=== PATIENT | male | born 1995 | race Hispanic/Latino ===

== ENCOUNTER 2017-10-05 09:58 | Emergency (ER) | payer OTHER, SELFPAY ==
[2017-10-05] MEDS ORDERED: Lidocaine 1% PF 5 ML VIAL ONE (10:10)
[2017-10-05] MEDS ORDERED: Bupivacaine 0.25% 10 ML VIAL ONE (11:15)
[2017-10-05] MEDS ORDERED: Bacitracin Zinc 1 Packet ONE (11:32)
[2017-10-05] MEDS ORDERED: Adacel (T-DAP) 0.5 ML VIAL ONE (11:54)
== END 2017-10-05 12:10 | disposition home or self-care (01) ==
LOC: ERS 09:58
DX: S61.210A Laceration without foreign body of right index finger without damage to nail, initial encounter (principal); Z23 Encounter for immunization; W45.8XXA Other foreign body or object entering through skin, initial encounter
CPT/HCPCS: 12001; 90471; 90715; J2001; S0020

== ENCOUNTER 2017-10-14 10:58 | Emergency (ER) | payer OTHER, SELFPAY ==
[2017-10-14] MEDS ORDERED: Bacitracin Zinc 1 Packet ONE (11:34)
== END 2017-10-14 11:49 | disposition home or self-care (01) ==
LOC: ERS 10:58
DX: S61.210D Laceration without foreign body of right index finger without damage to nail, subsequent encounter (principal)

== ENCOUNTER 2019-05-08 22:00 | Emergency (ER) | payer OTHER, SELFPAY | END 2019-05-08 22:18 | disposition home or self-care (01) | LOC: ERS 22:00 | DX: K64.9 Unspecified hemorrhoids (principal) | CPT/HCPCS: 99282 ==